=== PATIENT | female | born 1995 | race African-American/Black ===

== ENCOUNTER 2023-02-16 03:09 | Emergency (ER) | payer OTHER ==
[~2023-02-16] VITALS: Ht 167.6 cm; Wt 85.0 kg
[2023-02-16 03:19] VITALS: O2SAT 100
[2023-02-16] MEDS ORDERED: ACETAMINOPHEN 325MG TABLET PO ONE (03:30)
[2023-02-16] MEDS ORDERED: KETOROLAC 15MG/ML VIAL IV ONE (03:30)
[2023-02-16] MEDS ORDERED: SODIUM CHLORIDE 0.9% 1,000 ML IV ONE (03:30)
[2023-02-16 04:00] LABS: BASOPHILS % 0.2 % (0.0-2.0); DIFFERENTIAL COMMENT 0; EOSINOPHILS % 0.8 % (0.0-5.0); HEMATOCRIT. 32.1 % (36.0-48.0); HEMOGLOBIN. 10.5 g/dL (12.0-16.0); LYMPHOCYTES % 14.1 % (20.0-50.0); MEAN CORPUSCULAR HEMOGLOBIN 24.9 pg (28.0-32.0); MEAN CORPUSCULAR HGB CONC 32.7 g/dL (31.0-37.0); MEAN CORPUSCULAR VOLUME 76.2 fL (81.0-99.0); MEAN PLATELET VOLUME 7.2 fl (7.4-10.4); MONOCYTES % 5.1 % (2.0-8.0); NEUTROPHILS % 79.8 % (40.0-76.0); PLATELET 346 x1000/uL (130-400); RED BLOOD CELL COUNT 4.22 mill/uL (4.2-5.4); RED CELL DISTRIBUTION WIDTH 16.4 % (11.6-14.6); WHITE BLOOD COUNT 9.5 x1000/uL (4.5-11.0)
[2023-02-16 04:08] LABS: PROTHROMBIN TIME 10.9 sec (9.6-11.0)
[2023-02-16 04:12] LABS: ALANINE AMINOTRANSFERASE 28 IU/L (10-49); ALBUMIN 4.4 g/dL (3.2-4.8); ASPARTATE AMINOTRANSFERASE 25 IU/L (<34); BILIRUBIN TOTAL 0.2 mg/dL (0.1-1.0); CALCIUM 9.1 mg/dL (8.7-10.4); CARBON DIOXIDE 22 mEq/L (21-32); CHLORIDE 104 mEq/L (98-107); CREATININE 0.6 mg/dL (0.6-1.0); GLUCOSE 112 mg/dL (70-105); POTASSIUM 3.6 mEq/L (3.5-5.1); PROTEIN TOTAL 8.4 g/dL (6.0-8.3); SODIUM 136 mEq/L (136-145); UREA NITROGEN BLOOD 9 mg/dL (9-23)
[2023-02-16 04:19] LABS: HCG SCREEN NEGATIVE
[2023-02-16 05:08] LABS: ETHANOL BLOOD < 10 mg/dL (<10)
[2023-02-16] MEDS ORDERED: KETOROLAC 15MG/ML VIAL IV NR (05:30)
[2023-02-16] MEDS ORDERED: ACETAMINOPHEN 325MG TABLET PO NR (05:30)
[2023-02-16] MEDS: LIDOCAINE 5% PATCH TOP SCH ×2 (05:44→09:00)
[2023-02-16 05:47] LABS: CLARITY URINE CLOUDY (CLEAR); COLOR URINE YELLOW (YELLOW); GLUCOSE URINE NEGATIVE (NEGATIVE); KETONES URINE NEGATIVE (NEGATIVE); LEUKOCYTE ESTERASE URINE 3+ (NEGATIVE); NITRITE URINE NEGATIVE (NEGATIVE); OCCULT BLOOD URINE 2+ (NEGATIVE); PROTEIN URINE NEGATIVE (NEGATIVE); SPECIFIC GRAVITY URINE 1.006 (1.005-1.030); UROBILINOGEN URINE 0.2 E.U./dL (0.2-1.0)
[2023-02-16] MEDS ORDERED: DOXYCYCLINE HYCLATE 100MG CAPSULE PO ONE (06:15)
[2023-02-16] MEDS ORDERED: CEFTRIAXONE SODIUM 500 MG/VIAL IM ONE (06:15)
[2023-02-16] MEDS ORDERED: DOXY-456 MT (06:15)
[2023-02-16] MEDS ORDERED: NAPR-1074 MT (06:15)
[2023-02-16 06:36] LABS: BACTERIA URINE TRACE; SQUAMOUS EPITHELIAL CELL URINE 1+ /lpf (RARE/1+)
[2023-02-16] MEDS ORDERED: DOXYCYCLINE HYCLATE 100MG CAPSULE PO NR (10:15)
[2023-02-16] MEDS ORDERED: CEFTRIAXONE SODIUM 500 MG/VIAL IM NR (10:15)
[2023-02-16 10:46] VITALS: BP 132/85; PULSE 76; RESP 16; TEMP 98.4
== END 2023-02-16 10:45 | disposition home or self-care (01) ==
LOC: ER 03:09
DX: N39.0 Urinary tract infection, site not specified (principal); M54.50 Low back pain, unspecified
CPT/HCPCS: 80053; 81003; 80320; 84703; 83690; 85025; 85610; 87210; 36415; 76830; 76856; 96361; 96372; 96374; 99285; J0696; J1885; J7030; Z7610; 87591; G0480

== ENCOUNTER 2023-04-08 23:20 | Emergency (ER) | payer OTHER ==
[~2023-04-08] VITALS: Ht 167.6 cm; Wt 84.0 kg
[~2023-04-08 23:20] MED LIST: DOXY-456 MT; NAPR-1074 MT
[2023-04-08 23:46] VITALS: O2SAT 100
[2023-04-09] MEDS ORDERED: CYCL5TAB MT (01:50)
[2023-04-09] MEDS ORDERED: NAPR-681 PO (01:50)
[2023-04-09 02:13] VITALS: BP 138/77; PULSE 72; RESP 18; TEMP 98.2
== END 2023-04-09 03:00 | disposition home or self-care (01) ==
LOC: ER 04-09 02:36
DX: M43.6 Torticollis (principal)
CPT/HCPCS: 99283

== ENCOUNTER 2023-04-30 10:55 | Emergency (ER) | payer OTHER ==
[~2023-04-30] VITALS: Ht 167.6 cm; Wt 81.0 kg
[~2023-04-30 10:55] MED LIST changes: +CYCL5TAB MT; +NAPR-681 PO
[2023-04-30 11:00] VITALS: O2SAT 99
[2023-04-30 11:24] LABS: BASOPHILS % 0.1 % (0.0-2.0); DIFFERENTIAL COMMENT 0; EOSINOPHILS % 0.7 % (0.0-5.0); HEMATOCRIT. 37.1 % (36.0-48.0); HEMOGLOBIN. 11.8 g/dL (12.0-16.0); LYMPHOCYTES % 17.7 % (20.0-50.0); MEAN CORPUSCULAR HEMOGLOBIN 24.8 pg (28.0-32.0); MEAN CORPUSCULAR HGB CONC 31.7 g/dL (31.0-37.0); MONOCYTES % 7.7 % (2.0-8.0); NEUTROPHILS % 73.8 % (40.0-76.0); PLATELET 341 x1000/uL (130-400); RED BLOOD CELL COUNT 4.76 mill/uL (4.2-5.4); RED CELL DISTRIBUTION WIDTH 16.8 % (11.6-14.6); WHITE BLOOD COUNT 4.9 x1000/uL (4.5-11.0)
[2023-04-30] MEDS ORDERED: FAMOTIDINE 20MG/2ML VIAL IV STA (11:27)
[2023-04-30 11:53] LABS: ALANINE AMINOTRANSFERASE 13 IU/L (10-49); ALBUMIN 4.9 g/dL (3.2-4.8); ASPARTATE AMINOTRANSFERASE 19 IU/L (<34); BILIRUBIN TOTAL 0.4 mg/dL (0.1-1.0); CARBON DIOXIDE 25 mEq/L (21-32); CHLORIDE 106 mEq/L (98-107); CREATININE 0.7 mg/dL (0.6-1.0); GLUCOSE 91 mg/dL (70-105); PROTEIN TOTAL 8.9 g/dL (6.0-8.3); SODIUM 138 mEq/L (136-145); UREA NITROGEN BLOOD 8 mg/dL (9-23)
[2023-04-30] MEDS: MAGNESIUM/ALUMINUM HYDROXIDE/SIMETHICONE 30ML UDC PO STA (11:57)
[2023-04-30] MEDS: FAMOTIDINE 20MG TABLET PO ONE (11:57)
[2023-04-30 12:57] LABS: CLARITY URINE CLOUDY (CLEAR); COLOR URINE DARK YELLOW (YELLOW); GLUCOSE URINE NEGATIVE (NEGATIVE); KETONES URINE NEGATIVE (NEGATIVE); LEUKOCYTE ESTERASE URINE 1+ (NEGATIVE); NITRITE URINE NEGATIVE (NEGATIVE); OCCULT BLOOD URINE 2+ (NEGATIVE); PH URINE 5.5 (4.5-8.0); PROTEIN URINE 1+ (NEGATIVE); SPECIFIC GRAVITY URINE 1.035 (1.005-1.030)
[2023-04-30 13:27] LABS: BACTERIA URINE 4+; MUCUS URINE 2+ /lpf (< = 2+); SQUAMOUS EPITHELIAL CELL URINE 3+ /lpf (RARE/1+)
[2023-04-30 13:28] LABS: WBC URINE 0-2 /hpf (0-2)
[2023-04-30] MEDS ORDERED: MAG-55 MT (13:33)
[2023-04-30] MEDS ORDERED: NITR100C MT (13:33)
[2023-04-30] MEDS ORDERED: DIPH1TAB MT (14:26)
[2023-04-30 14:33] VITALS: BP 125/78; PULSE 100; RESP 17; TEMP 98.4
== END 2023-04-30 14:34 | disposition home or self-care (01) ==
LOC: ER 10:55
DX: K29.70 Gastritis, unspecified, without bleeding (principal); N39.0 Urinary tract infection, site not specified; Z98.890 Other specified postprocedural states; Z79.899 Other long term (current) drug therapy
CPT/HCPCS: 99283; 80053; 81003; 81025; 83690; 85025; 87804 ×2; 36415; J3490

== ENCOUNTER → 2023-08-10 | Emergency (ER) | payer OTHER ==
[~2023-08-10] VITALS: Ht 165.1 cm; Wt 90.0 kg
[~2023-08-10] MED LIST changes: +DIPH1TAB MT; +MAG-55 MT; +NITR100C MT
[2023-08-10 11:02] VITALS: O2SAT 100
[2023-08-10 12:04] LABS: HCG SCREEN NEGATIVE
[2023-08-10 12:07] LABS: BASOPHILS % 0.2 % (0.0-2.0); EOSINOPHILS % 2.4 % (0.0-5.0); HEMATOCRIT. 34.4 % (36.0-48.0); HEMOGLOBIN. 10.9 g/dL (12.0-16.0); LYMPHOCYTES % 12.1 % (20.0-50.0); MEAN CORPUSCULAR HEMOGLOBIN 25.5 pg (28.0-32.0); MEAN CORPUSCULAR HGB CONC 31.9 g/dL (31.0-37.0); MEAN CORPUSCULAR VOLUME 80.1 fL (81.0-99.0); MONOCYTES % 8.1 % (2.0-8.0); NEUTROPHILS % 77.2 % (40.0-76.0); RED BLOOD CELL COUNT 4.29 mill/uL (4.2-5.4); RED CELL DISTRIBUTION WIDTH 15.2 % (11.6-14.6); WHITE BLOOD COUNT 5.8 x1000/uL (4.5-11.0)
[2023-08-10 12:11] LABS: CHLORIDE 106 mEq/L (98-107); POTASSIUM 3.9 mEq/L (3.5-5.1); SODIUM 137 mEq/L (136-145)
[2023-08-10 12:12] LABS: CALCIUM 8.9 mg/dL (8.7-10.4); CARBON DIOXIDE 24 mEq/L (21-32)
[2023-08-10 12:17] LABS: CREATININE 0.6 mg/dL (0.6-1.0); GLUCOSE 98 mg/dL (70-105); UREA NITROGEN BLOOD 6 mg/dL (9-23)
[2023-08-10 12:19] LABS: ALANINE AMINOTRANSFERASE 21 IU/L (10-49); ASPARTATE AMINOTRANSFERASE 24 IU/L (<34); BILIRUBIN TOTAL 0.3 mg/dL (0.1-1.0); PROTEIN TOTAL 7.2 g/dL (6.0-8.3); TROPONIN I HIGH SENSITIVITY < 4 ng/L (3.0-34)
[2023-08-10 12:40] LABS: DIFFERENTIAL COMMENT 1
[2023-08-10] MEDS: MAGNESIUM/ALUMINUM HYDROXIDE/SIMETHICONE 30ML UDC PO ONE (13:10)
[2023-08-10] MEDS: FAMOTIDINE 20MG TABLET PO SCH (13:11)
[2023-08-10 14:52] LABS: MEAN PLATELET VOLUME 7.9 fl (7.4-10.4); PLATELET 255 x1000/uL (130-400)
[2023-08-10 16:09] VITALS: BP 133/77; PULSE 70; RESP 20; TEMP 98
== END ==
LOC: ER 11:00
DX: R07.9 Chest pain, unspecified (principal); Z98.890 Other specified postprocedural states
CPT/HCPCS: 36415; 71045; 80053; 84484; 84703; 85025; 93005; 99285

== ENCOUNTER 2024-03-02 17:35 | Emergency (ER) | payer OTHER ==
[~2024-03-02] VITALS: Ht 167.6 cm; Wt 85.0 kg
[~2024-03-02 17:35] MED LIST changes: -CYCL5TAB MT; +CYCL5TAB3 MT; -DOXY-456 MT; +DOXY100C74 MT
[2024-03-02 17:42] VITALS: O2SAT 99
[2024-03-02 17:43] VITALS: BP 139/66; PULSE 82; RESP 16; TEMP 98.6; O2SAT 100
[2024-03-02] MEDS ORDERED: IBUP-2029 MT (22:49)
[2024-03-02] MEDS ORDERED: P50 MT (22:49)
[2024-03-02] MEDS: PREDNISONE 20MG TABLET PO ONE (23:07)
== END 2024-03-02 23:23 | disposition home or self-care (01) ==
LOC: ER 17:35
DX: R21 Rash and other nonspecific skin eruption (principal); Z98.890 Other specified postprocedural states
CPT/HCPCS: 99283; J7512

== ENCOUNTER 2024-11-29 21:45 | Emergency (ER) | payer OTHER ==
[~2024-11-29] VITALS: Ht 167.6 cm; Wt 90.2 kg
[~2024-11-29 21:45] MED LIST changes: +DOXY-461 MT; -DOXY100C74 MT; +IBUP-1455 MT; +P50 MT
[2024-11-29 22:29] VITALS: TEMP 36.8; O2SAT 100
[2024-11-29 22:44] LABS: CLARITY URINE CLEAR (CLEAR); COLOR URINE YELLOW (YELLOW); GLUCOSE URINE NEGATIVE (NEGATIVE); KETONES URINE TRACE (NEGATIVE); LEUKOCYTE ESTERASE URINE 2+ (NEGATIVE); NITRITE URINE POSITIVE (NEGATIVE); OCCULT BLOOD URINE 2+ (NEGATIVE); PH URINE 6.0 (4.5-8.0); PROTEIN URINE NEGATIVE (NEGATIVE); SPECIFIC GRAVITY URINE 1.021 (1.005-1.030); UROBILINOGEN URINE 1.0 E.U./dL (0.2-1.0)
[2024-11-29 22:49] LABS: BACTERIA URINE 3+; SQUAMOUS EPITHELIAL CELL URINE FEW /lpf (RARE/1+)
[2024-11-29 23:48] LABS: BASOPHILS % 0.2 % (0.0-2.0); EOSINOPHILS % 3.5 % (0.0-5.0); HEMATOCRIT. 33.8 % (36.0-48.0); HEMOGLOBIN. 11.0 g/dL (12.0-16.0); LYMPHOCYTES % 23.8 % (20.0-50.0); MEAN PLATELET VOLUME 7.0 fl (7.4-10.4); MONOCYTES % 6.7 % (2.0-8.0); NEUTROPHILS % 65.8 % (40.0-76.0); PLATELET 288 x1000/uL (130-400); RED BLOOD CELL COUNT 4.22 mill/uL (4.2-5.4); RED CELL DISTRIBUTION WIDTH 15.0 % (11.6-14.6)
[2024-11-30 00:02] LABS: CREATININE 0.7 mg/dL (0.6-1.0)
[2024-11-30 00:03] LABS: UREA NITROGEN BLOOD 6 mg/dL (9-23)
[2024-11-30] MEDS ORDERED: NITR-87 MT (01:44)
[2024-11-30] MEDS: KETOROLAC 30MG/ML VIAL IM ONE (01:47)
[2024-11-30] MEDS: NITROFURANTOIN 100MG M/M CAPSULE PO ONE (01:47)
[2024-11-30 01:52] VITALS: BP 123/80; PULSE 74; RESP 18; O2SAT 100
== END 2024-11-30 01:54 | disposition home or self-care (01) ==
LOC: ER 21:45
DX: N39.0 Urinary tract infection, site not specified (principal); R10.20 Pelvic and perineal pain unspecified side; D50.9 Iron deficiency anemia, unspecified; Z79.899 Other long term (current) drug therapy
CPT/HCPCS: 99285; 80048; 81003; 81025; 85025; 36415; 76830; 76856; 96372; J1885